=== PATIENT | male | born 1990 | race Asian ===

== ENCOUNTER 2020-03-24 12:54 | Inpatient (IN) | payer MEDICAID ==
[~2020-03-24] VITALS: Ht 175.3 cm; Wt 87.2 kg
[2020-03-25] MEDS ORDERED: ZOLPIDEM TARTRATE 10 MG TABLET PO PRN (02:45)
[2020-03-25 04:14] VITALS: BP 138/70
[2020-03-25] MEDS ORDERED: IBUPROFEN 400 MG TABLET PO PRN (09:45)
[2020-03-25] MEDS ORDERED: GuaiFENesin/D-METHORPHAN [SUGAR-FREE] 200-20MG/10 ML SYRUP UDCUP PO PRN (09:45)
[2020-03-25] MEDS ORDERED: CloNIDine HCL 0.1 MG TABLET PO PRN (09:45)
[2020-03-25] MEDS ORDERED: PETROLATUM,WHITE 28 GM JELLY TP PRN (09:45)
[2020-03-25] MEDS ORDERED: MAGNESIUM HYDROXIDE SUSPENSION 30 ML UDCUP PO PRN (09:45)
[2020-03-25] MEDS ORDERED: MAG HYDROX/AL HYDROX/SIMETH ES 30 ML SUSPENSION UDCUP PO PRN (09:45)
[2020-03-25] MEDS ORDERED: ACETAMINOPHEN 325 MG TABLET PO PRN (09:45)
[2020-03-25] MEDS ORDERED: NICOTINE 14 MG/24 HOUR PATCH TD PRN (09:45)
[2020-03-25] MEDS ORDERED: ONDANSETRON HCL 4 MG TABLET PO PRN (09:45)
[2020-03-25] MEDS ORDERED: LOPERAMIDE HCL 2 MG CAPSULE PO PRN (09:45)
[2020-03-25] MEDS ORDERED: DOCUSATE SODIUM 100 MG CAPSULE PO PRN (09:45)
[2020-03-25] MEDS ORDERED: ALBUTEROL SULFATE HFA 90 MCG/PUFF 8 GM INHALER IH PRN (09:45)
[2020-03-25 10:30] VITALS: BP 134/81
[2020-03-25] MEDS: ARIPiprazole 10 MG TABLET PO SCH (13:13)
[2020-03-25 16:36] VITALS: BP 114/73
[2020-03-26 04:28] VITALS: BP 125/75
[2020-03-26 07:35] LABS: BASOPHILS % (AUTO) 0.9 % (0.0-2.0); EOSINOPHILS % (AUTO) 1.4 % (1.0-6.0); HEMATOCRIT 45.9 % (41-53); HEMOGLOBIN 15.7 g/dL (13.5-17.5); LYMPHOCYTES # (AUTO) 1.6 K/uL (1.0-4.8); LYMPHOCYTES % (AUTO) 23.9 % (22.0-44.0); MEAN CORPUSCULAR HEMOGLOBIN 31.5 pg (26.0-34.0); MEAN CORPUSCULAR HGB CONC 34.3 G/dL (31.0-37.0); MEAN CORPUSCULAR VOLUME 92 fL (80-100); MONOCYTES # (AUTO) 0.4 K/uL (0.1-1.0); MONOCYTES % (AUTO) 6.8 % (2.0-9.0); NEUTROPHILS # (AUTO) 4.4 K/uL (1.8-7.7); PLATELET COUNT (AUTO) 279 K/uL (150-450); RED CELL DISTRIBUTION WIDTH 13.3 % (11.5-14.5)
[2020-03-26] MEDS: ARIPiprazole 10 MG TABLET PO SCH (07:40)
[2020-03-26] MEDS: LORazepam 2 MG TABLET PO PRN (07:40)
[2020-03-26] MEDS: HALOPERIDOL 5 MG TABLET PO PRN (07:40)
[2020-03-26 08:06] LABS: ANION GAP 4 mmol/L (8-16); CARBON DIOXIDE 30 mmol/L (22-29); CHLORIDE 104 mmol/L (98-107); CHOL/HDL RATIO 3.3 (4.2-7.3); CHOLESTEROL 155 mg/dL (131-200); CREATININE 1.13 mg/dL (0.60-1.30); GLOMERULAR FILTR. RATE CALC > 60 mL/min (>60); GLUCOSE,RANDOM 95 mg/dL (70-110); HDL CHOLESTEROL 47 mg/dL (40-60); LDL CHOL (CALC.) 90 mg/dL (0-130); POTASSIUM 4.8 mmol/L (3.5-5.1); SODIUM SERUM 138 mmol/L (136-145); THYROID STIMULATING HORMONE 0.44 uIU/mL (0.36-3.74); TRIGLYCERIDES 88 mg/dL (15-150); UREA NITROGEN, BLOOD 12 mg/dL (7-18)
[2020-03-26 08:18] LABS: HEMOGLOBIN A1C 4.8 % (3.8-5.6)
[2020-03-26 09:03] VITALS: BP 116/76
[2020-03-26 16:23] VITALS: BP 108/72
[2020-03-27] MEDS: HALOPERIDOL 5 MG TABLET PO PRN (07:16)
[2020-03-27] MEDS: ARIPiprazole 10 MG TABLET PO SCH (07:16)
[2020-03-27] MEDS: LORazepam 2 MG TABLET PO PRN ×2 (07:16→16:43)
[2020-03-27 09:02] VITALS: BP 110/81
[2020-03-27 17:18] VITALS: BP 133/82
[2020-03-28] MEDS: ARIPiprazole 10 MG TABLET PO SCH (08:07)
[2020-03-28] MEDS: HALOPERIDOL 5 MG TABLET PO PRN (08:08)
[2020-03-28] MEDS: LORazepam 2 MG TABLET PO PRN (08:08)
[2020-03-28 10:37] VITALS: BP 131/76
[2020-03-28 17:19] VITALS: BP 148/61
[2020-03-28] MEDS ORDERED: LORazepam 2 MG/ML VIAL ONE (20:56)
[2020-03-28] MEDS ORDERED: HALOPERIDOL LACTATE 5 MG/ML VIAL ONE (20:57)
[2020-03-28] MEDS ORDERED: DiphenhydrAMINE HCL 50 MG/ML VIAL ONE (20:57)
[2020-03-29] MEDS: ARIPiprazole 10 MG TABLET PO SCH (09:13)
[2020-03-29] MEDS: LORazepam 2 MG TABLET PO PRN (09:13)
[2020-03-29] MEDS: HALOPERIDOL 5 MG TABLET PO PRN (09:13)
[2020-03-29 09:20] VITALS: BP 100/63
== END 2020-03-29 16:30 | disposition left against medical advice (07) | DRG 885 ==
LOC: 3EC 03-25 00:30
DX: F20.0 Paranoid schizophrenia (principal); Z53.29 Procedure and treatment not carried out because of patient's decision for other reasons; G44.209 Tension-type headache, unspecified, not intractable; Z79.899 Other long term (current) drug therapy; Z91.14 Patient's other noncompliance with medication regimen; Z91.19 Patient's noncompliance with other medical treatment and regimen
CPT/HCPCS: 83036; 84443; 87081; J1200; J1630; J2060